=== PATIENT | male | born 1975 | race Caucasian/White ===

== ENCOUNTER 2024-03-16 15:27 | Outpatient (CLI) | payer OTHER, SELFPAY ==
--- NOTE | ~2024-03-16 | XR_ITS ---
3 VIEWS LUMBAR SPINE Ordering provider: Roe Patrick, [place] History: . No injury lbp with bilateral hip pain for 3 weeks . Comparison: None. FINDINGS: VERTEBRAL BODIES: No visible fracture or subluxation. DISK SPACES: Narrowing of the disc L5-S1. Facet joint disease at the level of L4-L5 and L5-S1. SOFT TISSUES: Normal. IMPRESSION: No acute osseous abnormality lumbar spine. Reviewed, dictated and finalized at location A.
--- NOTE | ~2024-03-16 | XR_ITS ---
XR hip BI wo pelvis 03/16/2024 15:45 Indication: Bilateral hip pain Procedure: 2 views each hip Comparison: No prior studies for comparison. Findings: Small loose body lateral to the right hip. No fracture, subluxation or dislocation. There i s anatomic alignment. No significant joint space narrowing. Pelvic rings are intact. Sacral foramen a re symmetric. Impression: 1: No significant bone or joint abnormality. Reviewed, dictated and finalized at location B. Impression: 1: No significant bone or joint abnormality.
== END 2024-03-16 15:28 | disposition home or self-care (01) ==
PROVIDERS: PCP Chiropractor; Visit Provider Chiropractor
DX: M54.50 Low back pain, unspecified (principal); M25.552 Pain in left hip; M25.551 Pain in right hip
CPT/HCPCS: 72110; 73521